=== PATIENT | male | born 1985 | race Caucasian/White ===

== ENCOUNTER 2023-03-20 14:52 | Emergency (ER) | payer OTHER ==
[~2023-03-20] VITALS: Ht 180.3 cm; Wt 111.2 kg
[2023-03-20 15:25] VITALS: BP 128/61
[2023-03-20] MEDS ORDERED: KETOROLAC 30 MG/ML VIAL IM ONE ×2 (16:00→17:25)
[2023-03-20] MEDS ORDERED: methocarbamoL 500 MG TAB PO SCH (16:00)
[2023-03-20] MEDS ORDERED: ACETAMINOPHEN EXTRA STRENGTH 500 MG TAB PO ONE (16:15)
[2023-03-20] MEDS ORDERED: LIDOCAINE 5% 1 EA PATCH TP ONE (17:54)
[2023-03-20] MEDS ORDERED: ACETAMINOPHEN EXTRA STRENGTH 500 MG TAB ONE ×2 (17:55)
[2023-03-20] MEDS ORDERED: ONDANSETRON 4 MG ODT PO ONE (18:45)
[2023-03-20] MEDS ORDERED: MORPHINE SULFATE 4 MG/ML SYR IM ONE (18:45)
[2023-03-20 19:05] VITALS: BP 129/74
--- NOTE | 2023-03-20 19:34 | NUR ---
Dr. Keane examining patient.
[2023-03-20] MEDS ORDERED: IBUP-2213 PO (19:41)
[2023-03-20] MEDS ORDERED: ACET-8905 PO (19:41)
[2023-03-20] MEDS ORDERED: METH-1681 PO (19:41)
--- NOTE | 2023-03-20 20:01 | NUR ---
Ciara cruz in ED - 03/20/23 at 2003 by GUNJAN PT TRANSPORTED TO [id number]
--- NOTE | 2023-03-20 20:09 | NUR ---
Patient discharged with v/s stable. Written and verbal after care instructions given and explained. Patient alert, oriented and verbalized understanding of instructions. Ambulatory with steady gait. All questions addressed prior to discharge. ID band removed. Patient advised to follow up with PMD. Rx of NORCO, MOTRIN, ROBAXIN given. Patient educated on indication of medication including possible reaction and side effects. Opportunity to ask questions provided and answered.
[2023-03-21] MEDS ORDERED: LIDOCAINE 5% 1 EA PATCH TP SCH (09:00)
== END 2023-03-20 20:09 | disposition home or self-care (01) ==
LOC: MED 14:52
DX: S16.1XXA Strain of muscle, fascia and tendon at neck level, initial encounter (principal); S09.90XA Unspecified injury of head, initial encounter; M51.26 Other intervertebral disc displacement, lumbar region; R51.9 Headache, unspecified; M54.50 Low back pain, unspecified; V89.2XXA Person injured in unspecified motor-vehicle accident, traffic, initial encounter; Y93.89 Activity, other specified; Y92.89 Other specified places as the place of occurrence of the external cause; Y99.8 Other external cause status
CPT/HCPCS: 70450; 72131; 96372; 99285; J1885; J2270; Q0162